=== PATIENT | female | born 2000 ===

== ENCOUNTER 2022-11-14 09:42 | Outpatient (CLI) | payer OTHER | END 2022-11-14 11:15 | disposition home or self-care (01) | LOC: PRENATAL 09:42 | PROVIDERS: ATTEND Obstetrics & Gynecology Maternal & Fetal Medicine | DX: O35.9XX0 Maternal care for (suspected) fetal abnormality and damage, unspecified, not applicable or unspecified (principal); O44.00 Complete placenta previa NOS or without hemorrhage, unspecified trimester; O28.3 Abnormal ultrasonic finding on antenatal screening of mother; Z3A.15 15 weeks gestation of pregnancy ==